=== PATIENT | male | born 1945 | race Caucasian/White ===

== ENCOUNTER 2018-09-01 13:54 | Outpatient (CLI) | payer MEDICARE ==
--- NOTE | 2018-09-01 14:29 | ULT ---
FExam: Left lower extremity venous ultrasound with Doppler: HISTORY: Injury by falling onto a rock one week ago. Pain. Edema. COMPARISON: None TECHNIQUE: Grayscale, color flow, Doppler imaging and spectral wave form analysis performed left lowe r extremity venous system. FINDINGS: There is an enlarged left inguinal lymph node measuring 1.8 cm in maximal dimension. There is abnormal soft tissue swelling with irregular echotexture involving the anterior left lower e xtremity. There is absence of flow. Findings likely represent a hematoma measuring 3.1 x 1.1 x 4.5 cm . There is compressibility, presence of flow and augmentation in the common femoral vein, femoral vein and popliteal vein. There is flow in the greater saphenous vein, profunda vein and posterior tibial v ein. IMPRESSION: 1. No evidence of thrombus in the left lower extremity deep venous system. 2. Enlarged left inguinal lymph node which may be reactive. 3. Presumed hematoma along the anterior left lower extremity.
== END 2018-09-01 13:55 | disposition home or self-care (01) ==
LOC: ULT 13:54
PROVIDERS: ATTEND Family Medicine
DX: R60.0 Localized edema (principal); R59.0 Localized enlarged lymph nodes
CPT/HCPCS: 36415; 85379

== ENCOUNTER 2018-09-09 05:53 | Day surgery (SDC) | payer MEDICARE ==
[2018-09-08 09:54] VITALS: BMI 25.0
[2018-09-09] MEDS ORDERED: Fluorouracil 100 MG, Enoxaparin Sodium 25 MG, EPINEPHrine 0.3 MG in Ophthalmic Irrigati... IVPB SCH (06:00)
[2018-09-09] MEDS ORDERED: Phenylephrine 2.5% Ophth Soln 5 ML BOT ONE (06:14)
[2018-09-09] MEDS ORDERED: Cyclopentolate 1% Opth Drop 2 ML BOT ONE (06:14)
[2018-09-09] MEDS ORDERED: Midazolam HCl 2 mg/2 ml Vial ONE (06:37)
[2018-09-09] MEDS ORDERED: PROPOFOL 20 ML ONE (06:37)
[2018-09-09] MEDS ORDERED: Fentanyl 100 MCG/2 ML VIAL ONE (06:37)
--- NOTE | 2018-09-09 11:59 | OP ---
DATE OF PROCEDURE: 09/09/2018 PREOPERATIVE DIAGNOSIS: Epiretinal membrane, right eye. POSTOPERATIVE DIAGNOSIS: Epiretinal membrane, right eye. PROCEDURES PERFORMED: Pars plana vitrectomy and epiretinal membrane peel, right eye. ANESTHESIA: Local with monitored anesthesia care. PROCEDURE IN DETAIL: The patient was identified in the preoperative holding area. Appropriate informed consent for the planned surgical procedure on the right eye had been obtained. The patient was transported to the operative suite, where appropriate cardiopulmonary monitoring was established. Local anesthesia was obtained using retrobulbar modified [place] Lint lid block using 50:50 mixture of 4% lidocaine and 0.75% bupivacaine. The patient was prepped and draped in the usual sterile manner for ophthalmic surgery on the right eye. Lid speculum was placed in the right eye. A 25-gauge trocar was placed through the conjunctiva and sclera superotemporally, inferotemporally, and supranasally. Infusion line was placed inferotemporally. Light pipe vitreous cutter was inserted into the eye. Core vitrectomy was performed. Indocyanine green dye was infused on the posterior pole x1 identifying the epiretinal membrane. This was elevated using membrane scraper and peeled across the macula in multiple sheaths using end-gripping forceps. All traction on the macula was noted to be resolved. The foveal area appeared to be very loosened at the end of the case, a gas bubble was placed. After complete air-fluid exchange, trocars were removed. The eye was noted to retain pressure well. Retrobulbar Kenalog and subconjunctival Ancef were placed. Antibiotic ointment was placed and the eye was patched and shielded. The patient was taken to the postoperative recovery unit in good condition, having suffered no immediate perioperative complications. The patient was instructed to keep patch and shield on, avoid lifting or bending, avoid flat on the back positioning, and followup appointment with Dr. Matthews. Job ID: [id number]
[2018-09-09] MEDS ORDERED: Indocyanine Green 25 MG/10 ML VIAL ONE (15:40)
[2018-09-09] MEDS ORDERED: Lidocaine 4% PF 5 ML AMP ONE (15:40)
[2018-09-09] MEDS ORDERED: CEFAZOLIN 1 GM VIAL ONE (15:40)
[2018-09-09] MEDS ORDERED: Triamcinolone 40 MG/ML VIAL ONE (15:40)
[2018-09-09] MEDS ORDERED: Maxitrol 0.1% Opth Oint 3.5 GM TUBE ONE (15:40)
[2018-09-09] MEDS ORDERED: Lidocaine 1% PF 5 ML VIAL ONE (15:40)
[2018-09-09] MEDS ORDERED: PROPOFOL 200 MG/20 ML VIAL ONE (15:40)
[2018-09-09] MEDS ORDERED: Bupivacaine 0.75% 10 ML AMP ONE (15:40)
== END 2018-09-09 08:53 | disposition home or self-care (01) ==
LOC: SDC 05:53
PROVIDERS: ATTEND Ophthalmology Retina Specialist
PROC: 08T43ZZ Resection of Right Vitreous, Percutaneous Approach (ICD-10-PCS; principal; 2018-09-09)
PROC: 08NE3ZZ Release Right Retina, Percutaneous Approach (ICD-10-PCS; 2018-09-09)
DX: H35.371 Puckering of macula, right eye (principal); E78.1 Pure hyperglyceridemia; G47.33 Obstructive sleep apnea (adult) (pediatric); G40.909 Epilepsy, unspecified, not intractable, without status epilepticus; F32.9 Major depressive disorder, single episode, unspecified; I48.91 Unspecified atrial fibrillation; I10 Essential (primary) hypertension; Z79.01 Long term (current) use of anticoagulants; Z79.891 Long term (current) use of opiate analgesic; Z79.899 Other long term (current) drug therapy
CPT/HCPCS: 67025; J0171; J0690; J1650; J2001; J2250; J2704; J3010; J3301; J3490; J9190

== ENCOUNTER 2019-03-22 11:50 | Day surgery (SDC) | payer MEDICARE ==
[2019-03-21 11:51] VITALS: BMI 165.9
[2019-03-22] MEDS ORDERED: Fentanyl 100 MCG/2 ML VIAL ONE (12:43)
[2019-03-22] MEDS ORDERED: Propofol 1,000 MG/100 ML VIAL IV ONE (12:44)
[2019-03-22] MEDS ORDERED: Bupivacaine HCl 0.5%/Epinephrine 1:200,000/PF 30 ml Vial ONE (13:04)
[2019-03-22] MEDS ORDERED: PHENYLEPHRINE-NS 100 MCG/ML 10 ML SYRINGE ONE (15:31)
[2019-03-22] MEDS ORDERED: PROPOFOL 200 MG/20 ML VIAL ONE (15:31)
[2019-03-22] MEDS ORDERED: Lidocaine 1% PF 5 ML VIAL ONE (15:31)
--- NOTE | 2019-03-22 16:25 | OP ---
DATE OF PROCEDURE: 03/22/2019 PREOPERATIVE DIAGNOSES: 1. Postlaminectomy syndrome, lumbar. 2. Chronic pain. 3. Nonfunctioning spinal cord stimulator system, [place]. POSTOPERATIVE DIAGNOSES: 1. Postlaminectomy syndrome, lumbar. 2. Chronic pain. 3. Nonfunctioning spinal cord stimulator system, [place]. ANESTHESIA: TIVA. COMPLICATIONS: None. BLOOD LOSS: Less than 10 mL. DESCRIPTION OF PROCEDURE: Risks and benefits were discussed. Informed consent was obtained. He was taken to the OR, prepped and draped in standard fashion. Fluoroscopic guidance was used to identify the lead to raise the anchors in IPG. Fluoro was not required during the remainder of the case. 1% lidocaine mixed with 0.25% Marcaine with epinephrine was used for skin and subcutaneous anesthesia. Incision was carried out over the previous anchor incision. Anchors were easily identified, blunt dissection with the Metzenbaum ligated the anchoring sutures. The leads were then removed from the epidural space and the anchors were removed from the field. Attention was then turned to the IPG pocket. Incision carried out over the previous incision and blunt dissection down to the IPG. The IPG was externalized. Wires were ligated and pulled through the tunneling site, completing the explant. Hemostasis was secured with the Bovie. All counts were correct x2. Closure was accomplished with 2-0 running Vicryl and layers and the skin was closed with a running subcuticular 3-0 Rapide. Mastisol, Steri-Strips, 4x4s, and Medipore tape were used for dressing. Job ID: [id number]
== END 2019-03-22 15:30 | disposition home or self-care (01) ==
LOC: SDC 11:50
PROVIDERS: ATTEND Anesthesiology Pain Medicine
PROC: 00PU3MZ Removal of Neurostimulator Lead from Spinal Canal, Percutaneous Approach (ICD-10-PCS; principal; 2019-03-22)
PROC: 0JPT0MZ Removal of Stimulator Generator from Trunk Subcutaneous Tissue and Fascia, Open Approach (ICD-10-PCS; 2019-03-22)
DX: T85.113A Breakdown (mechanical) of implanted electronic neurostimulator, generator, initial encounter (principal); T85.112A Breakdown (mechanical) of implanted electronic neurostimulator of spinal cord electrode (lead), initial encounter; M96.1 Postlaminectomy syndrome, not elsewhere classified; G89.29 Other chronic pain; Y83.1 Surgical operation with implant of artificial internal device as the cause of abnormal reaction of the patient, or of later complication, without mention of misadventure at the time of the procedure; Z79.01 Long term (current) use of anticoagulants; Z79.891 Long term (current) use of opiate analgesic; Z79.899 Other long term (current) drug therapy
CPT/HCPCS: 76000; J0670; J2001; J2704; J3010

== ENCOUNTER 2021-06-24 12:10 | Outpatient (CLI) | payer MEDICARE | END 2021-06-24 12:11 | disposition home or self-care (01) | LOC: TBSIIMAG 12:10 | PROVIDERS: ATTEND Urology | DX: C61 Malignant neoplasm of prostate (principal); R10.2 Pelvic and perineal pain | CPT/HCPCS: 72197 ==

== ENCOUNTER 2021-12-23 08:53 | Outpatient (CLI) | payer MEDICARE ==
[2021-12-23 09:52] LABS: Hemoglobin 14.4 g/dL (13.5-17.5); Mean Corpuscular HGB CONC 35.8 g/dL (32.0-36.0); Mean Corpuscular Hemoglobin 34.1 pg (27.0-33.0); Mean Corpuscular Volume 95.3 fl (81.2-95.1); Mean Platelet Volume 8.8 fl (7.4-10.4); Platelet Count 167 10x3/uL (150-450); RBC Distribution Width 11.7 % (11.5-14.5); Red Blood Cell (RBC) Count 4.22 10x6/uL (4.32-5.72); White Blood Cell (WBC) Count 5.5 10x3/uL (3.5-10.5)
[2021-12-23 10:03] LABS: Bilirubin Neg (Negative); Blood, Urine 10 (Negative); Clarity Clear (Clear); Glucose, Urine (Dipstick) Normal (Negative); Ketone, Urine Negative (Negative); Leukocyte Negative (Negative); Nitrite Negative (Negative); Protein, Urine (Dipstick) Negative (Neg-Trace); Urobilinogen Normal mg/dL (Less than 2)
[2021-12-23 10:09] LABS: RBC/HPF 0-3 HPF (0-3); Squamous Epithelial 0-3 HPF (0-3); WBC/HPF 0-3 HPF (0-3)
[2021-12-23 10:10] LABS: Bacteria/HPF None Seen HPF (None Seen); INR-International Normal Ratio 0.9; PTT 26.2 sec (22.0-33.0); Prothrombin Time 9.9 sec (9.5-12.1)
[2021-12-23 10:15] LABS: Anion Gap 13 mmol/L (10-20); BUN (Urea Nitrogen) 27 mg/dL (8.4-25.7); Calc. Creatinine Clearance 0 mL/min (70-130); Carbon Dioxide 25 mmol/L (23-31); Chloride 105 mmol/L (98-107); Estimated GFR 47; Glucose 82 mg/dL (83-110); Potassium 4.2 mmol/L (3.5-5.1); Sodium 139 mmol/L (136-145)
== END 2021-12-23 08:54 | disposition home or self-care (01) ==
LOC: LABBT 08:53
PROVIDERS: ATTEND Urology
DX: Z01.818 Encounter for other preprocedural examination (principal); C61 Malignant neoplasm of prostate; N40.1 Benign prostatic hyperplasia with lower urinary tract symptoms; R35.0 Frequency of micturition; Z20.822 Contact with and (suspected) exposure to COVID-19
CPT/HCPCS: 80048; 81001; 85027; 85610; 85730; 87086; 87811; 93005; 93010

== ENCOUNTER 2021-12-25 07:49 | Observation (INO) | payer MEDICARE ==
[2021-12-23 11:38] VITALS: BMI 27.0
[2021-12-25] MEDS ORDERED: Iopamidol 0 ML ONE (10:22)
[2021-12-25] MEDS ORDERED: fentaNYL Citrate/PF 100 MCG/2 ML SYRINGE ONE (10:32)
[2021-12-25] MEDS ORDERED: Midazolam HCl 2 mg/2 ml Vial ONE (10:33)
[2021-12-25] MEDS ORDERED: Levofloxacin 500 mg/D5W 100 ml Premix Bag ONE (10:37)
[2021-12-25] MEDS ORDERED: Glycopyrrolate 0.2 MG/ML 5 ML SYRINGE ONE (10:50)
[2021-12-25] MEDS ORDERED: Rocuronium Bromide 10 MG/ML (10ML VIAL) ONE (10:50)
[2021-12-25] MEDS ORDERED: Dexamethasone 20 MG/5 ML VIAL ONE (10:50)
[2021-12-25] MEDS ORDERED: Lidocaine 1% PF 5 ML VIAL ONE (10:50)
[2021-12-25] MEDS ORDERED: Ondansetron PF 4 MG/2 ML Vial ONE (10:50)
[2021-12-25] MEDS ORDERED: PROPOFOL 200 MG/20 ML VIAL ONE (10:50)
[2021-12-25] MEDS ORDERED: B & O ONE (11:49)
[2021-12-25] MEDS ORDERED: Bisacodyl 10 MG SUPP PR PRN (12:04)
[2021-12-25] MEDS ORDERED: Zolpidem Tartrate 5 MG TAB PO PRN (12:04)
[2021-12-25] MEDS ORDERED: Morphine 4 MG/ML VIAL SLOW IVP PRN (12:04)
[2021-12-25] MEDS ORDERED: Oxybutynin 5 MG TAB PO PRN (12:04)
[2021-12-25] MEDS ORDERED: Ondansetron PF 4 MG/2 ML Vial IVP PRN (12:04)
[2021-12-25] MEDS ORDERED: diphenhydrAMINE 50 MG/ML VIAL IVP PRN (12:04)
[2021-12-25] MEDS ORDERED: Acetaminophen 500 MG TAB PO PRN (12:04)
[2021-12-25] MEDS ORDERED: Morphine 2 MG/ML VIAL SLOW IVP PRN (12:04)
[2021-12-25] MEDS ORDERED: Mag-Al 1200 mg/1200 mg/30 ML UDCUP PO PRN (12:04)
[2021-12-25] MEDS ORDERED: Phenazopyridine HCl 97.5 MG TABLET PO PRN (12:04)
[2021-12-25] MEDS ORDERED: hydrALAZINE 20 MG/ML VIAL SLOW IVP PRN ×2 (12:04)
[2021-12-25] MEDS ORDERED: Morphine 4 MG/ML VIAL ONE (12:29)
[2021-12-25] MEDS ORDERED: Meperidine HCl/PF 25 MG/ML VIAL ONE (13:07)
[2021-12-25] MEDS ORDERED: Morphine 2 MG/ML VIAL ONE (13:51)
[2021-12-25] MEDS: Sodium Chloride 0.9% 1,000 ML IV SCH (14:50)
[2021-12-25 15:14] LABS: #Eosinphils 0.1 thou/uL (0.0-0.7); #Lymphocytes 0.8 thou/uL (1.20-3.40); #Monocytes 0.1 thou/uL (0.11-0.59); #Neutrophils 5.9 thou/uL (1.40-6.50); %Basophils 0.3 % (0.0-1.0); %Eosinophils 0.7 % (0.0-10.0); %Lymphocytes 11.3 % (21.0-51.0); %Neutrophils 85.7 % (42.0-75.0); Hemoglobin 14.1 g/dL (14.0-18.0); Mean Corpuscular HGB CONC 34.9 g/dL (32.0-36.0); Mean Corpuscular Hemoglobin 34.6 pg (27.0-31.0); Mean Corpuscular Volume 99.2 fL (78.0-98.0); Mean Platelet Volume 6.3 fL (7.4-10.4); Platelet Count 139 thou/uL (130-400); RBC Distribution Width 11.1 % (11.5-14.5); Red Blood Cell (RBC) Count 4.06 mill/uL (4.70-6.10); White Blood Cell (WBC) Count 6.9 thou/uL (4.8-10.8)
[2021-12-25 15:37] LABS: Anion Gap 13 mmol/L (10-20); BUN (Urea Nitrogen) 21 mg/dL (8.4-25.7); Calc. Creatinine Clearance 67 mL/min (70-130); Calcium 9.1 mg/dL (7.8-10.44); Carbon Dioxide 22 mmol/L (23-31); Chloride 108 mmol/L (98-107); Estimated GFR 59; Glucose 104 mg/dL (83-110); Potassium 4.4 mmol/L (3.5-5.1); Sodium 139 mmol/L (136-145)
[2021-12-25] MEDS: Morphine IR Tab 15 MG TAB PO SCH (17:25)
[2021-12-25] MEDS: lamoTRIgine 25 MG TAB PO SCH (20:26)
[2021-12-25] MEDS: Dronedarone HCl 400 MG TAB PO SCH (20:26)
[2021-12-25] MEDS: Docusate 100 MG CAP PO SCH (20:27)
[2021-12-25] MEDS: Famotidine/PF 20 mg/2ml Vial SLOW IVP SCH (20:27)
[2021-12-25] MEDS ORDERED: Losartan 25 MG TAB PO SCH (21:00)
[2021-12-25] MEDS ORDERED: Tamsulosin HCl 0.4 MG CAP PO SCH (21:00)
[2021-12-25] MEDS ORDERED: Atorvastatin Calcium 10 MG TAB PO SCH (21:00)
[2021-12-25] MEDS ORDERED: Latanoprost 0.005% Ophth Soln 2.5 ml Bottle EA EYE SCH (21:00)
[2021-12-25] MEDS ORDERED: Dutasteride 0.5 MG CAP PO SCH (21:00)
[2021-12-26] MEDS: Morphine IR Tab 15 MG TAB PO SCH ×3 (00:01→11:36)
[2021-12-26] MEDS: Sodium Chloride 0.9% 1,000 ML IV SCH ×2 (00:03→03:36)
[2021-12-26 05:47] LABS: #Lymphocytes 0.6 thou/uL (1.20-3.40); #Monocytes 0.7 thou/uL (0.11-0.59); #Neutrophils 8.7 thou/uL (1.40-6.50); %Basophils 0.2 % (0.0-1.0); %Eosinophils 0.2 % (0.0-10.0); %Lymphocytes 6.3 % (21.0-51.0); %Monocytes 6.6 % (0.0-10.0); %Neutrophils 86.8 % (42.0-75.0); Mean Corpuscular HGB CONC 34.3 g/dL (32.0-36.0); Mean Corpuscular Hemoglobin 34.4 pg (27.0-31.0); Mean Platelet Volume 6.6 fL (7.4-10.4); Platelet Count 186 thou/uL (130-400); RBC Distribution Width 11.2 % (11.5-14.5); Red Blood Cell (RBC) Count 3.78 mill/uL (4.70-6.10); White Blood Cell (WBC) Count 10.1 thou/uL (4.8-10.8)
[2021-12-26 06:06] LABS: Anion Gap 11 mmol/L (10-20); BUN (Urea Nitrogen) 16 mg/dL (8.4-25.7); Calc. Creatinine Clearance 69 mL/min (70-130); Calcium 8.7 mg/dL (7.8-10.44); Carbon Dioxide 23 mmol/L (23-31); Chloride 110 mmol/L (98-107); Estimated GFR 61; Glucose 121 mg/dL (83-110); Potassium 3.8 mmol/L (3.5-5.1); Sodium 140 mmol/L (136-145)
[2021-12-26] MEDS ORDERED: Bisacodyl 10 MG SUPP PR PRN (07:45)
[2021-12-26] MEDS: lamoTRIgine 25 MG TAB PO SCH (07:59)
[2021-12-26] MEDS: Docusate 100 MG CAP PO SCH (07:59)
[2021-12-26] MEDS: Dronedarone HCl 400 MG TAB PO SCH (08:00)
[2021-12-26] MEDS: Famotidine/PF 20 mg/2ml Vial SLOW IVP SCH (08:00)
[2021-12-26] MEDS ORDERED: Bisacodyl 10 MG SUPP PR SCH (08:00)
[2021-12-26] MEDS ORDERED: Tamsulosin HCl 0.4 MG CAP PO SCH (09:00)
[2021-12-26] MEDS ORDERED: Triamterene/Hydrochlorothiazide 37.5 mg/25 mg Tablet PO SCH (09:00)
[2021-12-26] MEDS ORDERED: Folic Acid 1 MG TAB PO SCH (09:00)
[2021-12-26 11:36] VITALS: BP 139/77; TEMP 97.7
== END 2021-12-26 12:45 | disposition home or self-care (01) ==
LOC: SDC 07:49 → SURG A 12:04
PROVIDERS: ADMIT Urology; ATTEND Urology
PROC: 0VT08ZZ Resection of Prostate, Via Natural or Artificial Opening Endoscopic (ICD-10-PCS; principal; 2021-12-25)
DX: N40.0 Benign prostatic hyperplasia without lower urinary tract symptoms (principal); N32.89 Other specified disorders of bladder; I10 Essential (primary) hypertension; E78.1 Pure hyperglyceridemia; G89.29 Other chronic pain; M54.9 Dorsalgia, unspecified; G40.909 Epilepsy, unspecified, not intractable, without status epilepticus; Z85.46 Personal history of malignant neoplasm of prostate; Z79.891 Long term (current) use of opiate analgesic; Z79.899 Other long term (current) drug therapy; Z88.0 Allergy status to penicillin; Z88.5 Allergy status to narcotic agent; Z88.8 Allergy status to other drugs, medicaments and biological substances
CPT/HCPCS: 52601; 80048 ×2; 85025 ×2; 86850; 86900; 86901; 96374; 96375; 96376; G0378 ×2; J2270; 36415; 88305; J0360; J1100; J1956; J2175; J2250; J2405; J2704; J2710; J7050; Q9967; S0028

== ENCOUNTER 2022-03-25 06:12 | Observation (INO) | payer MEDICARE ==
[2022-03-25] MEDS ORDERED: Ondansetron PF 4 MG/2 ML Vial ONE (07:52)
[2022-03-25] MEDS ORDERED: Meclizine HCl 25 MG TAB ONE (07:53)
[2022-03-25 08:13] LABS: #Lymphocytes 0.5 thou/uL (1.20-3.40); #Monocytes 0.3 thou/uL (0.11-0.59); #Neutrophils 6.7 thou/uL (1.40-6.50); %Eosinophils 0.4 % (0.0-10.0); %Lymphocytes 7.1 % (21.0-51.0); %Monocytes 3.9 % (0.0-10.0); %Neutrophils 88.6 % (42.0-75.0); Hemoglobin 14.6 g/dL (14.0-18.0); Mean Corpuscular HGB CONC 34.6 g/dL (32.0-36.0); Mean Corpuscular Volume 98.1 fl (78.0-98.0); Mean Platelet Volume 6.6 fL (7.4-10.4); Platelet Count 206 thou/uL (130-400); RBC Distribution Width 11.6 % (11.5-14.5); Red Blood Cell (RBC) Count 4.28 mill/uL (4.70-6.10); White Blood Cell (WBC) Count 7.5 thou/uL (4.8-10.8)
[2022-03-25 08:30] LABS: Bacteria/HPF None Seen HPF (None Seen); Bilirubin Negative (Negative); Blood, Urine 1+ (Negative); Clarity Clear (Clear); Glucose, Urine (Dipstick) Normal (Negative); Ketone, Urine Trace mg/dL (Negative); Leukocyte Negative Leu/uL (Negative); Nitrite Negative (Negative); Protein, Urine (Dipstick) 20 mg/dL (Neg-Trace); Specific Gravity, Urine 1.025 (1.002-1.036); Squamous Epithelial None Seen HPF (0-3); Urobilinogen Normal mg/dL (Less than 2); pH, Urine 5.5 (5.0-9.0)
[2022-03-25 09:15] LABS: ALT (SGPT) 28 U/L (8-55); Albumin 4.7 g/dL (3.4-4.8); Alkaline Phosphatase 64 U/L (40-110); Anion Gap 13 mmol/L (10-20); BUN (Urea Nitrogen) 16 mg/dL (8.4-25.7); Bilirubin, Total 0.7 mg/dL (0.2-1.2); CK (CPK) 122 U/L (30-200); Calc. Creatinine Clearance 0 mL/min (70-130); Calcium 9.7 mg/dL (7.8-10.44); Carbon Dioxide 24 mmol/L (23-31); Chloride 103 mmol/L (98-107); Estimated GFR 51; Glucose 123 mg/dL (83-110); Lipase 42 U/L (8-78); Sodium 135 mmol/L (136-145)
[2022-03-25 09:24] LABS: AST (SGOT) 20 U/L (5-34); Magnesium 2.2 mg/dL (1.6-2.6); Potassium 3.7 mmol/L (3.5-5.1)
[2022-03-25] MEDS ORDERED: Iopamidol 370 76% 100 ML VIAL ONE (09:28)
[2022-03-25] MEDS ORDERED: Ondansetron ORAL SOLN. 4 MG/5 ML UDCUP PO PRN (13:01)
[2022-03-25] MEDS ORDERED: Ondansetron ODT 4 MG TAB ONE (13:36)
[2022-03-25] MEDS ORDERED: Meclizine HCl 25 MG TAB PO PRN ×2 (14:35→15:56)
[2022-03-25] MEDS ORDERED: Acetaminophen 325 MG TAB PO PRN (15:27)
[2022-03-25] MEDS: Lactated Ringer's 1,000 ML IV SCH (17:39)
[2022-03-25 17:56] VITALS: BMI 27.0
[2022-03-25] MEDS ORDERED: Latanoprost 0.005% Ophth Soln 2.5 ml Bottle EA EYE SCH (21:00)
[2022-03-25] MEDS ORDERED: Atorvastatin Calcium 10 MG TAB PO SCH (21:00)
[2022-03-25] MEDS: Apixaban 5 MG TAB PO SCH (21:41)
[2022-03-25] MEDS: Dronedarone HCl 400 MG TAB PO SCH (21:41)
[2022-03-25] MEDS: lamoTRIgine 100 MG TAB PO SCH (21:42)
[2022-03-25] MEDS: Morphine ER 15 MG TAB PO SCH (21:42)
[2022-03-25] MEDS: lamoTRIgine 25 MG TAB PO SCH (21:44)
[2022-03-26] MEDS: Lactated Ringer's 1,000 ML IV SCH ×2 (01:51→10:26)
[2022-03-26 06:21] LABS: Anion Gap 12 mmol/L (10-20); BUN (Urea Nitrogen) 14 mg/dL (8.4-25.7); Calc. Creatinine Clearance 70 mL/min (70-130); Calcium 8.9 mg/dL (7.8-10.44); Carbon Dioxide 23 mmol/L (23-31); Chloride 107 mmol/L (98-107); Estimated GFR 63; Glucose 89 mg/dL (83-110); Potassium 3.7 mmol/L (3.5-5.1); Sodium 138 mmol/L (136-145)
[2022-03-26] MEDS: Dronedarone HCl 400 MG TAB PO SCH (08:38)
[2022-03-26] MEDS: Apixaban 5 MG TAB PO SCH (08:39)
[2022-03-26] MEDS: lamoTRIgine 25 MG TAB PO SCH (08:39)
[2022-03-26] MEDS: lamoTRIgine 100 MG TAB PO SCH (08:39)
[2022-03-26] MEDS ORDERED: Triamterene/Hydrochlorothiazide 37.5 mg/25 mg Tablet PO SCH (09:00)
[2022-03-26] MEDS: Morphine ER 15 MG TAB PO SCH (10:25)
[2022-03-26 11:39] VITALS: BP 122/76; TEMP 97.9
[2022-03-26 12:38] LABS: Eosinophils 1 % (0-10); Hemoglobin 17.2 g/dL (14.0-18.0); Lymphocytes 18 % (21-51); MDiff Complete? YES; Macrocytosis SLIGHT = 6-15 cells (100X) (0-5/hpf); Mean Corpuscular HGB CONC 34.2 g/dL (32.0-36.0); Mean Corpuscular Hemoglobin 34.7 pg (27.0-31.0); Mean Platelet Volume 6.7 fL (7.4-10.4); Monocytes 3 % (0-10); Neutrophil 78 % (42-75); Ovalocytes SLIGHT = 2-5 cells (100X) (0-1/hpf); Platelet Count 222 thou/uL (130-400); Platelet Morphology Comment Appears Adequate; RBC Distribution Width 11.9 % (11.5-14.5); Red Blood Cell (RBC) Count 4.97 mill/uL (4.70-6.10); White Blood Cell (WBC) Count 9.2 thou/uL (4.8-10.8)
== END 2022-03-26 12:50 | disposition home or self-care (01) ==
LOC: ERS 06:12 → ERHOLD 11:11 → NEURO 16:49
PROVIDERS: ADMIT Family Medicine; ATTEND Family Medicine
DX: H81.10 Benign paroxysmal vertigo, unspecified ear (principal); I48.91 Unspecified atrial fibrillation; R56.9 Unspecified convulsions; I10 Essential (primary) hypertension; E78.5 Hyperlipidemia, unspecified; D33.0 Benign neoplasm of brain, supratentorial; Z79.01 Long term (current) use of anticoagulants; Z79.891 Long term (current) use of opiate analgesic; Z79.899 Other long term (current) drug therapy; Z88.0 Allergy status to penicillin; Z88.5 Allergy status to narcotic agent; Z88.8 Allergy status to other drugs, medicaments and biological substances; Z20.822 Contact with and (suspected) exposure to COVID-19
CPT/HCPCS: 70450; 74177; 80048; 82550; 83690; 83735; 84484; 85025; 93005 ×2; 96361 ×3; 96374; 99285; G0378 ×3; U0003; U0005; 36415; 80053; 81003; 81015; 84443; 93010; J2405; J7120; Q0162; Q9967

== ENCOUNTER 2022-04-07 08:52 | Inpatient (IN) | payer MEDICARE ==
[2022-04-07 10:02] LABS: #Eosinphils 0.3 thou/uL (0.0-0.7); #Lymphocytes 1.3 thou/uL (1.20-3.40); #Monocytes 0.9 thou/uL (0.11-0.59); %Basophils 0.1 % (0.0-1.0); %Eosinophils 2.2 % (0.0-10.0); %Monocytes 7.4 % (0.0-10.0); %Neutrophils 80.4 % (42.0-75.0); Mean Corpuscular HGB CONC 35.3 g/dL (32.0-36.0); Mean Corpuscular Hemoglobin 34.6 pg (27.0-31.0); Mean Corpuscular Volume 98.2 fl (78.0-98.0); Mean Platelet Volume 6.6 fL (7.4-10.4); Platelet Count 278 thou/uL (130-400); RBC Distribution Width 12.1 % (11.5-14.5); Red Blood Cell (RBC) Count 4.63 mill/uL (4.70-6.10); White Blood Cell (WBC) Count 12.5 thou/uL (4.8-10.8)
[2022-04-07 10:14] LABS: ALT (SGPT) 26 U/L (8-55); AST (SGOT) 22 U/L (5-34); Albumin 4.8 g/dL (3.4-4.8); Alkaline Phosphatase 76 U/L (40-110); Anion Gap 17 mmol/L (10-20); BUN (Urea Nitrogen) 32 mg/dL (8.4-25.7); Bilirubin, Total 1.2 mg/dL (0.2-1.2); Calc. Creatinine Clearance 0 mL/min (70-130); Calcium 9.9 mg/dL (7.8-10.44); Carbon Dioxide 17 mmol/L (23-31); Chloride 98 mmol/L (98-107); Estimated GFR 18; Globulin 2.8 g/dL (2.4-3.5); Glucose 112 mg/dL (83-110); Lipase 40 U/L (8-78); Magnesium 2.4 mg/dL (1.6-2.6); Potassium 4.3 mmol/L (3.5-5.1); Protein, Total 7.6 g/dL (5.8-8.1); Sodium 128 mmol/L (136-145)
[2022-04-07] MEDS ORDERED: Pantoprazole 40 MG VIAL ONE (10:30)
[2022-04-07] MEDS ORDERED: Ondansetron PF 4 MG/2 ML Vial ONE (10:30)
[2022-04-07] MEDS ORDERED: Morphine 4 MG/ML VIAL ONE (11:47)
[2022-04-07] MEDS ORDERED: Lactated Ringer's 1,000 ML IV SCH (13:30)
[2022-04-07 13:56] VITALS: BMI 26.8
[2022-04-07] MEDS ORDERED: Simethicone Chewable 80 MG TAB PO SCH (14:15)
[2022-04-07] MEDS ORDERED: Polyethylene Glycol 3350 17 GM Packet PO SCH (14:15)
[2022-04-07 14:43] LABS: SARS-CoV-2 NAA Rapid Test Not Detected (NotDetected)
[2022-04-07 16:16] LABS: Anion Gap 15 mmol/L (10-20); BUN (Urea Nitrogen) 32 mg/dL (8.4-25.7); Calc. Creatinine Clearance 26 mL/min (70-130); Calcium 9.1 mg/dL (7.8-10.44); Carbon Dioxide 19 mmol/L (23-31); Chloride 103 mmol/L (98-107); Estimated GFR 20; Glucose 143 mg/dL (83-110); Potassium 3.8 mmol/L (3.5-5.1); Sodium 133 mmol/L (136-145)
[2022-04-07 17:17] LABS: Potassium, Urine Less than 10.0 mmol/L; Sodium, Urine 43 mmol/L (Not Available)
[2022-04-07] MEDS: Lactated Ringer's 1,000 ML IV SCH (17:24)
[2022-04-07] MEDS ORDERED: Dronedarone HCl 400 MG TAB PO SCH (21:00)
[2022-04-07] MEDS: Morphine ER 15 MG TAB PO SCH (21:27)
[2022-04-07] MEDS: Calcium Carbonate 500 MG ChewTAB PO PRN (21:27)
[2022-04-07] MEDS: lamoTRIgine 100 MG TAB PO SCH (21:28)
[2022-04-07] MEDS: Atorvastatin Calcium 10 MG TAB PO SCH (21:29)
[2022-04-07] MEDS: Apixaban 5 MG TAB PO SCH (21:29)
[2022-04-07] MEDS: Latanoprost 0.005% Ophth Soln 2.5 ml Bottle EA EYE SCH (21:29)
[2022-04-07 23:10] LABS: Anion Gap 13 mmol/L (10-20); BUN (Urea Nitrogen) 31 mg/dL (8.4-25.7); Calc. Creatinine Clearance 26 mL/min (70-130); Calcium 9.3 mg/dL (7.8-10.44); Carbon Dioxide 23 mmol/L (23-31); Chloride 102 mmol/L (98-107); Estimated GFR 20; Glucose 106 mg/dL (83-110); Potassium 3.8 mmol/L (3.5-5.1); Sodium 134 mmol/L (136-145)
[2022-04-08] MEDS: Lactated Ringer's 1,000 ML IV SCH ×3 (03:15→16:54)
[2022-04-08 06:39] LABS: #Eosinphils 0.5 thou/uL (0.0-0.7); #Lymphocytes 1.8 thou/uL (1.20-3.40); #Monocytes 0.6 thou/uL (0.11-0.59); #Neutrophils 4.5 thou/uL (1.40-6.50); %Basophils 0.5 % (0.0-1.0); %Eosinophils 6.9 % (0.0-10.0); %Lymphocytes 23.8 % (21.0-51.0); %Monocytes 8.5 % (0.0-10.0); %Neutrophils 60.4 % (42.0-75.0); Hemoglobin 14.1 g/dL (14.0-18.0); Mean Corpuscular HGB CONC 34.7 g/dL (32.0-36.0); Mean Corpuscular Hemoglobin 34.5 pg (27.0-31.0); Mean Corpuscular Volume 99.6 fl (78.0-98.0); Mean Platelet Volume 6.4 fL (7.4-10.4); Platelet Count 206 thou/uL (130-400); RBC Distribution Width 11.9 % (11.5-14.5); Red Blood Cell (RBC) Count 4.07 mill/uL (4.70-6.10); White Blood Cell (WBC) Count 7.4 thou/uL (4.8-10.8)
[2022-04-08 07:34] LABS: ALT (SGPT) 34 U/L (8-55); AST (SGOT) 23 U/L (5-34); Albumin 4.3 g/dL (3.4-4.8); Alkaline Phosphatase 71 U/L (40-110); Anion Gap 12 mmol/L (10-20); BUN (Urea Nitrogen) 31 mg/dL (8.4-25.7); Calc. Creatinine Clearance 28 mL/min (70-130); Calcium 9.6 mg/dL (7.8-10.44); Carbon Dioxide 25 mmol/L (23-31); Chloride 102 mmol/L (98-107); Estimated GFR 22; Globulin 2.1 g/dL (2.4-3.5); Glucose 100 mg/dL (83-110); Potassium 4.7 mmol/L (3.5-5.1); Protein, Total 6.4 g/dL (5.8-8.1); Sodium 134 mmol/L (136-145)
[2022-04-08 07:36] LABS: Cardiac Risk 3.6 (Less than 4.5)
[2022-04-08] MEDS: lamoTRIgine 100 MG TAB PO SCH ×2 (08:04→20:28)
[2022-04-08] MEDS: Morphine ER 15 MG TAB PO SCH ×2 (08:05→20:26)
[2022-04-08] MEDS: Apixaban 5 MG TAB PO SCH ×2 (08:05→20:27)
[2022-04-08] MEDS: Dronedarone HCl 400 MG TAB PO SCH ×2 (08:08→16:54)
[2022-04-08] MEDS: Polyethylene Glycol 3350 17 GM Packet PO SCH (08:08)
[2022-04-08 10:38] LABS: Bacteria/HPF None Seen HPF (None Seen); Bilirubin Negative (Negative); Blood, Urine Negative (Negative); Clarity Clear (Clear); Glucose, Urine (Dipstick) Normal (Negative); Ketone, Urine Negative (Negative); Leukocyte Negative Leu/uL (Negative); Nitrite Negative (Negative); Protein, Urine (Dipstick) Negative (Neg-Trace); RBC/HPF None Seen HPF (0-3); Squamous Epithelial None Seen HPF (0-3); Urobilinogen Normal mg/dL (Less than 2)
[2022-04-08] MEDS ORDERED: Bisacodyl 10 MG SUPP PR SCH (11:15)
[2022-04-08] MEDS: Latanoprost 0.005% Ophth Soln 2.5 ml Bottle EA EYE SCH (20:26)
[2022-04-08] MEDS: Atorvastatin Calcium 10 MG TAB PO SCH (20:27)
[2022-04-09] MEDS: Lactated Ringer's 1,000 ML IV SCH ×2 (01:10→08:44)
[2022-04-09 06:10] LABS: #Eosinphils 0.5 thou/uL (0.0-0.7); #Lymphocytes 1.4 thou/uL (1.20-3.40); #Monocytes 0.6 thou/uL (0.11-0.59); %Basophils 0.5 % (0.0-1.0); %Lymphocytes 21.4 % (21.0-51.0); %Monocytes 9.5 % (0.0-10.0); %Neutrophils 61.5 % (42.0-75.0); Mean Corpuscular HGB CONC 35.5 g/dL (32.0-36.0); Mean Corpuscular Hemoglobin 35.5 pg (27.0-31.0); Mean Platelet Volume 6.4 fL (7.4-10.4); Platelet Count 180 10x3/uL (130-400); RBC Distribution Width 11.7 % (11.5-14.5); Red Blood Cell (RBC) Count 3.65 mill/uL (4.70-6.10); White Blood Cell (WBC) Count 6.5 10x3/uL (4.8-10.8)
[2022-04-09 06:22] LABS: ALT (SGPT) 39 U/L (8-55); AST (SGOT) 24 U/L (5-34); Albumin 3.8 g/dL (3.4-4.8); Alkaline Phosphatase 58 U/L (40-110); Anion Gap 9 mmol/L (10-20); BUN (Urea Nitrogen) 29 mg/dL (8.4-25.7); Bilirubin, Total 0.7 mg/dL (0.2-1.2); Calc. Creatinine Clearance 32 mL/min (70-130); Calcium 8.9 mg/dL (7.8-10.44); Carbon Dioxide 28 mmol/L (23-31); Chloride 102 mmol/L (98-107); Estimated GFR 26; Globulin 1.8 g/dL (2.4-3.5); Glucose 97 mg/dL (83-110); Potassium 4.3 mmol/L (3.5-5.1); Protein, Total 5.6 g/dL (5.8-8.1); Sodium 135 mmol/L (136-145)
[2022-04-09] MEDS: lamoTRIgine 100 MG TAB PO SCH ×2 (08:33→20:47)
[2022-04-09] MEDS: Dronedarone HCl 400 MG TAB PO SCH ×2 (08:34→16:56)
[2022-04-09] MEDS: Apixaban 5 MG TAB PO SCH ×2 (08:34→20:47)
[2022-04-09] MEDS: Morphine ER 15 MG TAB PO SCH ×2 (08:34→21:02)
[2022-04-09] MEDS: Polyethylene Glycol 3350 17 GM Packet PO SCH (08:35)
[2022-04-09] MEDS ORDERED: Lactated Ringer's 1,000 ML IV SCH (10:07)
[2022-04-09] MEDS ORDERED: Melatonin 3 MG TAB PO PRN (20:06)
[2022-04-09] MEDS ORDERED: Polyethylene Glycol 3350 17 GM Packet PO SCH (20:15)
[2022-04-09] MEDS: Latanoprost 0.005% Ophth Soln 2.5 ml Bottle EA EYE SCH (20:47)
[2022-04-09] MEDS: Atorvastatin Calcium 10 MG TAB PO SCH (20:48)
[2022-04-10 05:23] LABS: #Eosinphils 0.2 thou/uL (0.0-0.7); #Monocytes 0.5 thou/uL (0.11-0.59); #Neutrophils 3.5 thou/uL (1.40-6.50); %Lymphocytes 18.6 % (21.0-51.0); %Monocytes 9.2 % (0.0-10.0); %Neutrophils 68.3 % (42.0-75.0); Hemoglobin 11.5 g/dL (14.0-18.0); Mean Corpuscular HGB CONC 35.2 g/dL (32.0-36.0); Mean Corpuscular Hemoglobin 34.6 pg (27.0-31.0); Mean Corpuscular Volume 98.5 fl (78.0-98.0); Mean Platelet Volume 6.3 fL (7.4-10.4); Platelet Count 177 10x3/uL (130-400); RBC Distribution Width 11.5 % (11.5-14.5); Red Blood Cell (RBC) Count 3.33 mill/uL (4.70-6.10); White Blood Cell (WBC) Count 5.1 10x3/uL (4.8-10.8)
[2022-04-10 05:50] LABS: ALT (SGPT) 49 U/L (8-55); AST (SGOT) 28 U/L (5-34); Albumin 3.8 g/dL (3.4-4.8); Alkaline Phosphatase 60 U/L (40-110); Anion Gap 13 mmol/L (10-20); BUN (Urea Nitrogen) 25 mg/dL (8.4-25.7); Bilirubin, Total 0.9 mg/dL (0.2-1.2); Calc. Creatinine Clearance 36 mL/min (70-130); Calcium 9.2 mg/dL (7.8-10.44); Carbon Dioxide 27 mmol/L (23-31); Chloride 102 mmol/L (98-107); Estimated GFR 29; Globulin 1.8 g/dL (2.4-3.5); Glucose 103 mg/dL (83-110); Potassium 4.3 mmol/L (3.5-5.1); Protein, Total 5.6 g/dL (5.8-8.1); Sodium 138 mmol/L (136-145)
[2022-04-10 08:20] VITALS: BP 147/83; TEMP 97.6
[2022-04-10] MEDS: Dronedarone HCl 400 MG TAB PO SCH (08:52)
[2022-04-10] MEDS: lamoTRIgine 100 MG TAB PO SCH (08:52)
[2022-04-10] MEDS: Apixaban 5 MG TAB PO SCH (08:53)
[2022-04-10] MEDS: Morphine ER 15 MG TAB PO SCH (08:53)
[2022-04-10] MEDS: Polyethylene Glycol 3350 17 GM Packet PO SCH (08:54)
[2022-04-10] MEDS: Calcium Carbonate 500 MG ChewTAB PO PRN (08:54)
== END 2022-04-10 12:29 | disposition home or self-care (01) | DRG 683 ==
LOC: ERS 08:52 → MSONC 13:31
PROVIDERS: ADMIT Student in an Organized Health Care Education/Training Program; ATTEND Student in an Organized Health Care Education/Training Program
DX: N17.9 Acute kidney failure, unspecified (principal); E87.1 Hypo-osmolality and hyponatremia; F11.20 Opioid dependence, uncomplicated; I48.91 Unspecified atrial fibrillation; G40.909 Epilepsy, unspecified, not intractable, without status epilepticus; Z20.822 Contact with and (suspected) exposure to COVID-19; K59.00 Constipation, unspecified; E78.00 Pure hypercholesterolemia, unspecified; E86.0 Dehydration; Z88.1 Allergy status to other antibiotic agents; Z88.8 Allergy status to other drugs, medicaments and biological substances; Z79.01 Long term (current) use of anticoagulants
CPT/HCPCS: 36415; 71045; 74176; 80053; 80061; 81001; 82436; 82570; 83605; 83690; 83735; 83930; 83935; 84133; 84300; 84484; 85025; 93005; 94760; 96374; 96375; C9113; J2270; J2405; J7120; U0002

== ENCOUNTER 2023-12-17 11:14 | Outpatient (CLI) | payer MEDICARE ==
[2023-12-17 12:39] LABS: Bilirubin Neg (Negative); Blood, Urine 25 (Negative); Clarity Clear (Clear); Glucose, Urine (Dipstick) Normal (Negative); Ketone, Urine Negative (Negative); Leukocyte 25 (Negative); Nitrite Negative (Negative); Protein, Urine (Dipstick) Negative (Neg-Trace); Urobilinogen Normal mg/dL (Less than 2)
[2023-12-17 12:50] LABS: Bacteria/HPF Rare-Few HPF (None Seen); Squamous Epithelial 0-3 HPF (0-3)
[2023-12-17 12:57] LABS: Hematocrit 38.8 % (38.8-50.0); Hemoglobin 13.2 g/dL (13.5-17.5); Mean Corpuscular Hemoglobin 33.5 pg (27.0-33.0); Mean Corpuscular Volume 98.5 fL (81.2-95.1); Mean Platelet Volume 8.9 fL (7.4-10.4); Platelet Count 200 10x3/uL (150-450); RBC Distribution Width 12.5 % (11.5-14.5); Red Blood Cell (RBC) Count 3.94 10x6/uL (4.32-5.72)
[2023-12-17 13:21] LABS: PTT 31.4 sec (22.0-33.0)
[2023-12-17 13:23] LABS: Anion Gap 15 mmol/L (10-20); BUN (Urea Nitrogen) 23 mg/dL (8.4-25.7); Calc. Creatinine Clearance 0 mL/min (70-130); Calcium 9.1 mg/dL (7.8-10.44); Carbon Dioxide 25 mmol/L (23-31); Chloride 103 mmol/L (98-107); Estimated GFR 55; Glucose 97 mg/dL (83-110); Potassium 4.7 mmol/L (3.5-5.1); Sodium 138 mmol/L (136-145)
== END 2023-12-17 11:15 | disposition home or self-care (01) ==
LOC: LABBT 11:14
PROVIDERS: ATTEND Urology
DX: Z01.818 Encounter for other preprocedural examination (principal); C61 Malignant neoplasm of prostate
CPT/HCPCS: 71046; 80048; 81001; 85027; 85610; 85730; 87086; 93005; 93010

== ENCOUNTER 2024-03-16 12:05 | Outpatient (CLI) | payer MEDICARE ==
[2024-03-16 13:25] LABS: #Basophils 0.04 10x3/uL (0.0-0.2); %Basophils 0.4 % (0.0-1.0); %Lymphocytes 16.2 % (21.0-51.0); %Monocytes 7.9 % (0.0-10.0); %Neutrophils 72.7 % (42.0-75.0); Hematocrit 42.1 % (42.0-52.0); Hemoglobin 14.4 g/dL (14.0-18.0); Mean Corpuscular HGB CONC 34.2 g/dL (32.0-36.0); Mean Corpuscular Hemoglobin 33.7 pg (27.0-31.0); Mean Corpuscular Volume 98.6 fL (78.0-98.0); Mean Platelet Volume 8.6 fL (7.4-10.4); Platelet Count 219 10x3/uL (130-400); RBC Distribution Width 12.1 % (11.5-14.5); Red Blood Cell (RBC) Count 4.27 mill/uL (4.70-6.10)
[2024-03-16 13:29] LABS: Bacteria/HPF None Seen HPF (None Seen); Bilirubin Negative (Negative); Blood, Urine Trace (Negative); Clarity Clear (Clear); Glucose, Urine (Dipstick) Normal (Negative); Ketone, Urine Negative (Negative); Leukocyte Negative Leu/uL (Negative); Nitrite Negative (Negative); Protein, Urine (Dipstick) Negative (Neg-Trace); RBC/HPF 0-3 HPF (0-3); Specific Gravity, Urine 1.011 (1.002-1.036); Squamous Epithelial None Seen HPF (0-3); Urobilinogen Normal mg/dL (Less than 2); WBC/HPF 0-3 HPF (0-3); pH, Urine 5.5 (5.0-9.0)
[2024-03-16 13:41] LABS: Anion Gap 12 mmol/L (10-20); BUN (Urea Nitrogen) 22 mg/dL (8.4-25.7); Calc. Creatinine Clearance 0 mL/min (70-130); Calcium 9.4 mg/dL (7.8-10.44); Carbon Dioxide 26 mmol/L (23-31); Chloride 107 mmol/L (98-107); Estimated GFR 54; Glucose 90 mg/dL (83-110); Potassium 4.3 mmol/L (3.5-5.1); Sodium 141 mmol/L (136-145)
[2024-03-16 13:46] LABS: INR-International Normal Ratio 1.1; Prothrombin Time 14.2 sec (12.0-14.7)
[2024-03-16 13:47] LABS: PTT 31.1 sec (22.9-36.1)
== END 2024-03-16 12:06 | disposition home or self-care (01) ==
LOC: LABBT 12:05
PROVIDERS: ATTEND Urology
DX: Z01.818 Encounter for other preprocedural examination (principal); Z51.81 Encounter for therapeutic drug level monitoring; C61 Malignant neoplasm of prostate; N40.1 Benign prostatic hyperplasia with lower urinary tract symptoms; G89.29 Other chronic pain; N28.9 Disorder of kidney and ureter, unspecified; N42.81 Prostatodynia syndrome; I48.91 Unspecified atrial fibrillation; R10.2 Pelvic and perineal pain; R31.29 Other microscopic hematuria; R35.0 Frequency of micturition; Z79.01 Long term (current) use of anticoagulants; Z90.79 Acquired absence of other genital organ(s)
CPT/HCPCS: 71046; 80048; 81001; 85025; 85610; 85730; 87086; 93005; 93010

== ENCOUNTER 2024-03-30 06:22 | Day surgery (SDC) | payer MEDICARE ==
[2024-03-16 12:24] VITALS: BMI 26.4
[2024-03-30] MEDS ORDERED: LevoFLOXacin D5W 500 mg (100 mL) BAG ONE (06:39)
[2024-03-30] MEDS ORDERED: Propofol 1,000 MG/100 ML VIAL IV ONE (07:10)
[2024-03-30] MEDS ORDERED: PROPOFOL 20 ML ONE (07:50)
[2024-03-30] MEDS ORDERED: Lidocaine 2% PF 5 ML VIAL ONE (07:51)
[2024-03-30 07:58] LABS: PTT 28.5 sec (22.9-36.1); Prothrombin Time 13.2 sec (12.0-14.7)
[2024-03-30] MEDS ORDERED: Sodium Chloride 0.9% 100 ML ONE (08:13)
[2024-03-30] MEDS ORDERED: cefTRIAXone (ROCEPHIN) 2 GM VIAL ONE (08:13)
[2024-03-30] MEDS ORDERED: fentaNYL 50 mcg/mL 1 mL Vial ONE (08:16)
[2024-03-30] MEDS ORDERED: Phenazopyridine HCl 100 MG TAB ONE (09:14)
[2024-03-30] MEDS ORDERED: Tamsulosin HCl 0.4 MG CAP ONE (09:14)
== END 2024-03-30 10:20 | disposition home or self-care (01) ==
LOC: SDC 06:22
PROVIDERS: ATTEND Urology
PROC: 0VB07ZX Excision of Prostate, Via Natural or Artificial Opening, Diagnostic (ICD-10-PCS; principal; 2024-03-30)
DX: C61 Malignant neoplasm of prostate (principal); N40.1 Benign prostatic hyperplasia with lower urinary tract symptoms; R97.20 Elevated prostate specific antigen [PSA]; N41.1 Chronic prostatitis; I48.91 Unspecified atrial fibrillation; I10 Essential (primary) hypertension; G40.109 Localization-related (focal) (partial) symptomatic epilepsy and epileptic syndromes with simple partial seizures, not intractable, without status epilepticus; F32.9 Major depressive disorder, single episode, unspecified; K21.9 Gastro-esophageal reflux disease without esophagitis; G47.00 Insomnia, unspecified; Z90.89 Acquired absence of other organs; Z90.49 Acquired absence of other specified parts of digestive tract; Z79.899 Other long term (current) drug therapy
CPT/HCPCS: 55700; 76498; 85610; 85730; C1747; J0696; J1956; J2704 ×2; J3010; 88305; 88342; G0416

== ENCOUNTER 2024-04-15 12:30 | Outpatient (CLI) | payer MEDICARE | END 2024-04-15 12:31 | disposition home or self-care (01) | LOC: PET 12:30 | PROVIDERS: ATTEND Urology | DX: C61 Malignant neoplasm of prostate (principal) | CPT/HCPCS: 78815; A9552; A9595 ==

== ENCOUNTER 2025-01-09 12:51 | Outpatient (CLI) | payer MEDICARE | END 2025-01-09 12:52 | disposition home or self-care (01) | LOC: SCSMRI 12:51 | PROVIDERS: ATTEND Urology | DX: C61 Malignant neoplasm of prostate (principal) | CPT/HCPCS: 72197 ==